=== PATIENT | female | born 1970 | race Caucasian/White ===

== ENCOUNTER 2016-10-25 16:35 | Emergency (ER) | payer MEDICARE, MEDICAID ==
--- NOTE | ~2016-10-25 | ER ---
[facility] 45 [facility] [address] ROOM: [place] [address] LOCATION: [facility] ADMIT DATE: 10/25/2016 ER/Outpatient Report DISCHARGE DATE: 10/25/2016 FAMILY PHYSICIAN: ATTENDING PHYSICIAN: Sonny Walker Time of Arrival: 1634 hours. Time of Evaluation: 1634 hours. CHIEF COMPLAINT: Alcohol intoxication. HISTORY OF PRESENT ILLNESS: The patient is a 45-year-old female who presents to the emergency department today with a chief complaint of alcohol intoxication. She reports that she drinks every other day about a bottle of whiskey. She denies any suicidal ideations, denies any homicidal ideations. She denies any fevers or chills. No nausea or vomiting. No diarrhea or constipation. She does report she has been hurting for about 3 years with back pain. This was unchanged today. She denies any chest pain. No shortness of breath. No diarrhea or constipation. Denies any troubles urinating. She denies taking any other drugs. PAST MEDICAL HISTORY: None reported. PAST SURGICAL HISTORY: None. SOCIAL HISTORY: The patient smokes. Reports drinking alcohol every other day, whiskey. Denies any illicit drug use. ALLERGIES: PENICILLIN. MEDICATIONS: None. ROS: All systems are reviewed by myself and are negative with the exception of those discussed in HPI and past medical history. PHYSICAL EXAMINATION: VITAL SIGNS: Blood pressure 112/72, pulse 120, respiratory rate 16, temperature 96.9, oxygen saturation 93% on room air. PAT[facility]'S NAME: [facility] AGE: 45 Y [address] ROOM: [place] [address] LOCATION: [facility] ADMIT DATE: 10/25/2016 ER/Outpatient Report DISCHARGE DATE: 10/25/2016 FAMILY PHYSICIAN: ATTENDING PHYSICIAN: Sonny Walker GENERAL: The patient is a 45-year-old female, who appears older than her stated age, disheveled with foul odor. HEENT: Normocephalic, atraumatic. Pupils are equal, round, and reactive to light and accommodating. Extraocular motions are intact. Nares are patent bilaterally. TMs are clear. Oropharynx is clear. NECK: Supple. There is no nuchal rigidity. CARDIOVASCULAR: Tachycardic. No murmurs, rubs, or gallops. LUNGS: Clear to auscultation bilaterally. No wheezes, rales, or rhonchi. ABDOMEN: Soft, nontender, and nondistended. No rebound, rigidity, or guarding. MUSCULOSKELETAL: The patient moves all 4 extremities. Ambulates with steady gait. NEUROLOGICAL: GCS of 15. Alert and oriented to person, place, time, and president. SKIN: Warm and dry. LABORATORY DATA AND X-RAYS: Obtained. CBC is remarkable for white blood cell count 12.8, hemoglobin 15.1, hematocrit 46.1, otherwise unremarkable. CMP is unremarkable except for potassium 3.5, CO2 is 17, glucose 301, alkaline phosphatase 140. AST is 6, ALT is normal. Alcohol is 0.167. Acetaminophen is less than 2.0, salicylate is 3.6. Serum hCG is less than 1. CT scan of the brain is obtained. I have discussed the results with the radiologist shows no acute intracranial process. The urine drug screen is pending at the time of transfer of care. IMPRESSION: 1. Alcohol intoxication. 2. Initial visit. EMERGENCY DEPARTMENT COURSE: The patient was brought back to the examination room. Seen and evaluated by myself. IV is established. Laboratory analysis and imaging is obtained as described above. The patient is given a liter of normal saline IV. She is given 100 mg of thiamine IV. A venous blood gas and lactate are obtained. It does show 7.31/36/62/18/97.4 with a lactate of 4.9. I did discuss the case with Dr. Mccabe at shift change. He will see and evaluate the patient. We will have Randolph Delgado come and evaluate the patient for psychiatric evaluation. Dr. Mccabe will follow up on this evaluation and determine disposition appropriately. DISPOSITION/FOLLOW-UP: Per Dr. Mccabe. PATIENT'S NAME: DINH ANDERSON [facility] AGE: 45 Y [address] ROOM: [place], [place] [address] LOCATION: [facility] ADMIT DATE: 10/25/2016 ER/Outpatient Report DISCHARGE DATE: 10/25/2016 FAMILY PHYSICIAN: ATTENDING PHYSICIAN: Sonny Walker DO LOT[facility] WE[facility]/ray /[id number] d: 10/26/16 0839 t: 11/04/16 1926, OUTPATIENT REPORT
--- NOTE | ~2016-10-25 | ER ---
PATIENT'S NAME: DINH ANDERSON [facility] AGE: 45 Y [address] ROOM: [place] [address] LOCATION: [facility] ADMIT DATE: 10/25/2016 ER/Outpatient Report DISCHARGE DATE: 10/25/2016 FAMILY PHYSICIAN: Physician, Unknown ATTENDING PHYSICIAN: Sonny Walker HISTORY OF PRESENT ILLNESS: This patient is a 45-year-old female, who presented to the emergency room with acute alcohol intoxication. The patient has a history of chronic alcohol abuse. The patient was initially seen by Dr. Walker. See Dr. Walker's dictation in regard to chief complaint, history of present illness, past medical history, physical exam, laboratory, x-ray study results. Dr. Walker has transferred the patient's care over to me at shift change. He asked me to follow up with the patient's unreported lab studies, final diagnosis, and treatment plan. The patient apparently drinks about a gallon of whiskey every other day. She has had some visual and auditory hallucinations. Dr. Walker did not feel that she was suicidal or homicidal. LABORATORY DATA AND X-RAYS: The patient's CT scan of the head was negative. Her medical blood alcohol was elevated at 0.167. We finally did get a urine sample from the patient, and her urine drug screen was negative. The patient's chemistry was normal except for a slight low potassium 3.5, low CO2 content of 17, elevated anion gap of 19.5, elevated glucose 301, low calcium of 8, elevated alkaline phosphatase 140, low AST of 6. Serum acetaminophen and salicylate levels were negative. Quantitative HCG was negative. Venous pH was 7.31, lactate was 4.9. EKG showed left bundle-branch block. I did have Randolph Delgado therapist come and interview the patient, evaluate the patient. See their assessment. IMPRESSION: Acute alcoholic intoxication with a history of chronic alcohol abuse. PLAN: The patient dismissed home. Observation. Activity as tolerated. Continue present home medications and care. Fluids and diet tolerated. Avoid alcohol. Follow up with personal physician in 3 to 4 days. MD YARED MCKOY/modl PATIENT'S NAME: DINH ANDERSON [facility] AGE: 45 Y [address] ROOM: [place] [address] LOCATION: [facility] ADMIT DATE: 10/25/2016 ER/Outpatient Report DISCHARGE DATE: 10/25/2016 FAMILY PHYSICIAN: Physician, Unknown ATTENDING PHYSICIAN: Sonny Walker /[id number] d: 10/26/168 t: 10/28/16 1814, OUTPATIENT REPORT
[2016-10-25 17:10] LABS: BASOPHIL # 0.1 K/uL (0.0-0.2); BASOPHIL % 0.6 %; EOSINOPHIL # 0.3 K/uL (0.0-0.5); EOSINOPHIL % 2.3 %; HEMATOCRIT 46.1 % (33.0-46.0); HEMOGLOBIN 15.1 g/dL (10.0-15.0); IMMATURE GRANULOCYTE # 0.1 K/uL (0.0-0.3); IMMATURE GRANULOCYTE % 0.7 %; LYMPHOCYTE # 2.3 K/uL (0.8-4.0); LYMPHOCYTE % 17.6 %; MCH 30.1 pg (27.0-34.0); MCHC 32.8 gm/dL (32.0-36.5); MCV 91.8 fl (83.0-98.0); MONOCYTE # 0.8 K/uL (0.0-1.0); MONOCYTE % 6.1 %; MPV 9.3 fl (9.4-12.4); NEUTROPHIL # (ANC) 9.3 K/uL (1.8-7.8); NEUTROPHIL % 72.7 %; NRBC % 0 /100WBC (0-0.00); PLATELET COUNT 342 K/uL (150-450); RBC 5.02 M/uL (3.50-5.50); RDW-CV 13.9 % (11.9-14.6); WBC 12.8 K/uL (4.0-11.0)
[2016-10-25 17:29] LABS: ALBUMIN 3.3 gm/dL (3.5-5.0); ALK PHOS 140 IU/L (33-138); ALT 17 IU/L (12-78); AST 6 IU/L (10-40); BLOOD UREA NITROGEN 6 mg/dL (6-24); CHLORIDE 108 mMol/L (96-110); CREATININE 0.8 mg/dL (0.5-1.1); ESTIMATED GFR (MDRD EQUATION) > 60; POTASSIUM 3.5 mMol/L (3.7-5.1); SODIUM 141 mMol/L (135-145); TOTAL BILIRUBIN 0.1 mg/dL (0.0-1.5); TOTAL PROTEIN 7.2 g/dL (6.0-8.4)
[2016-10-25 17:33] LABS: ANION GAP 19.5 (10.0-19.0); CO2 17 mMol/L (22-32)
[2016-10-25 17:48] LABS: BICARBONATE 18.1 mmol/L (18.0-23.0); LACTATE 4.9 mEq/L (0.50-1.60); PCO2 36 mmHg (35-45); PO2 62 mmHg (80-90)
[2016-10-25 19:25] LABS: COCAINE NEGATIVE (NEGATIVE); OPIATES NEGATIVE (NEGATIVE)
[2016-10-25 19:27] LABS: AMPHETAMINE NEGATIVE (NEGATIVE); BARBITURATE NEGATIVE (NEGATIVE)
== END 2016-10-25 19:54 | disposition disaster alternative care site (69) ==
LOC: GMED 16:35
PROVIDERS: Emergency Medicine
DX: F10.129 Alcohol abuse with intoxication, unspecified (principal); F17.200 Nicotine dependence, unspecified, uncomplicated; Z88.0 Allergy status to penicillin
CPT/HCPCS: G0480; J3411; J7030

== ENCOUNTER → 2016-10-25 | Outpatient (CLI) | payer MEDICARE, MEDICAID | END | disposition disaster alternative care site (69) | LOC: GAMB 16:17 | DX: F10.129 Alcohol abuse with intoxication, unspecified (principal); M54.9 Dorsalgia, unspecified; E11.9 Type 2 diabetes mellitus without complications; I10 Essential (primary) hypertension; R47.81 Slurred speech; Z79.899 Other long term (current) drug therapy | CPT/HCPCS: A0425; A0429 ==

== ENCOUNTER → 2016-11-22 | Outpatient (CLI) | payer MEDICARE, MEDICAID | LOC: LFPA 13:30 | DX: Z00.00 Encounter for general adult medical examination without abnormal findings (principal); Z12.4 Encounter for screening for malignant neoplasm of cervix | CPT/HCPCS: G0145 ==